=== PATIENT | female | born 2005 | race Hispanic/Latino ===

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

== ENCOUNTER 2025-04-12 22:46 | Emergency (ER) | payer OTHER, MEDICAID ==
[~2025-04-12] VITALS: Ht 157.5 cm; Wt 86.2 kg
--- NOTE | 2025-04-12 22:57 | ERN ---
ED Note History of Present Illness Stated Complaint: C/O N X V, HEADACHE X 2 DAYS; 10 WKS Chief Complaint: OB<20 weeks gest. Time Seen by MD: 22:49 Dictation: PATIENT IS A 20-YEAR-OLD FEMALE WHO IS APPROXIMATELY 10 WEEKS COMPLAINING OF NAUSEA VOMITING UNABLE TO KEEP ANY FOOD OR FLUIDS DOWN FOR THE LAST TWO DAYS. , SHE STATES SHE SEES A PRESCHOOL ASSISTANT DIRECTOR WHO CALLED HER IN SOME MEDICATIONS FOR VOMITING HOWEVER �SHE DID NOT TAKE HIM TODAY�. NO NO CONTRACTIONS Allergies: Coded Allergies: No Known Allergies (Unverified Allergy, Unknown, 05/03/22) Home Meds Active Scripts Diclofenac Sodium (Diclofenac Sodium) 50 Mg Tablet.dr, 50 MG PO TIDP PRN for SEVERE PAIN (7-10), #20 TAB 0 Refills Prov:YADI ISAACS MD 07/18/22 Ibuprofen (Ibuprofen) 600 Mg Tablet, 600 MG PO Q6H PRN for PAIN, #30 TAB 0 Refills Prov:CARINE ESTEVEZ MD 05/04/22 Past Medical History Past Medical History: No Pertinent History Surgical History: None Social History: Other LMP: Jan 18, 2025 : 1 Para: 0 Aborts: 0 RN Note Reviewed/Agreed w/PFSH: Yes Review of System Dictation CONSTITUTIONAL: NEGATIVE EXCEPT FOR HPI HEAD/FACE: NEGATIVE EXCEPT FOR HPI EENT: NEGATIVE EXCEPT FOR HPI RESPIRATORY: NEGATIVE EXCEPT FOR HPI GASTROINTESTINAL/ABDOMINAL: NEGATIVE EXCEPT FOR HPI NAUSEA VOMITING GENITOURINARY: NEGATIVE EXCEPT FOR HPI MUSCULOSKELETAL: NEGATIVE EXCEPT FOR HPI INTEGUMENTARY: NEGATIVE EXCEPT FOR HPI NEUROLOGICAL/PSYCH: NEGATIVE EXCEPT FOR HPI HEMATOLOGIC/LYMPHATIC: NEGATIVE EXCEPT FOR HPI ALL SYSTEMS NEGATIVE, EXCEPT NOTED ABOVE. 13 POINT REVIEW OF SYSTEMS ASSESSED AND ALL NEGATIVE EXCEPT FOR ABOVE. Initial Vital Sign VS Vital Signs Date Time Temp Pulse Resp B/P (MAP) Pulse Ox O2 Delivery O2 Flow Rate FiO2 04/12/25 22:48 97.9 82 20 117/70 99 Room Air 04/12/25 23:35 0 21 Physical Exam Dictation VITAL SIGNS REVIEWED GENERAL APPEARANCE: ALERT, ORIENTED X 3, NO ACUTE DISTRESS, WELL DEVELOPED, NOURISHED. HEAD AND FACE: NON-TRAUMATIC. EYES: PERRL, PINK CONJUNCTIVAS, EYELID NO TRAUMA, ANTERIOR CHAMBER WITH ARCUS SENILIS. EARS: PINNAS INTACT AND NO SIGNS OF TRAUMA OR ERYTHEMA EAR CANALS CLEAR AND NO DISCHARGE TM NO ERYTHEMA NOSE: NO DISCHARGE, NO BLEEDING. OROPHARYNX: MOUTH NORMAL, TONGUE PINK, PHARYNX CLEAR,NO ERYTHEMA, TONSILS NO EXUDATES, NO ABSCESSES NOTED, MUCOUS MEMBRANE MOIST NECK: SUPPLE, NON-TENDER, NO THYROMEGALY, NO MASSES, NO JVD, NO BRUITS BREAST:DEFERRED CHEST:NO TENDERNESS, NO CREPITUS, NO PARADOXICAL MOVEMENT, NO RETRACTIONS LUNGS:CLEAR, WELL-VENTILATED, SYMMETRIC, NO RALES, NO WHEEZING, NO RHONCHI, NO STRIDOR, GOOD BREATH SOUNDS BILATERALLY HEART: REGULAR RATE, REGULAR RHYTHM, NO MURMUR, NO GALLOPS VASCULAR: NO PERIPHERAL EDEMA, ABDOMEN: SOFT, POSITIVE BOWEL SOUNDS, NONDISTENDED, NO GUARDING, NONTENDER, NO REBOUND, NO MASSES NO HEPATOMEGALY, NO SPLENOMEGALY, NO SCHMITT'S SIGN, NO HERNIAS. RECTAL: DEFERRED GENITAL: DEFERRED NEUROLOGICAL: NORMAL SPEECH, MOTOR FUNCTION INTACT, SENSORY FUNCTION INTACT MUSCULOSKELETAL: NECK NONTENDER, FULL RANGE OF MOTION, BACK NONTENDER, FULL RANGE OF MOTION, EXTREMITIES: NONTENDER, FULL RANGE OF MOTION SKIN: COLOR PINK, DRY, NO TURGOR, NO RASH, NO LACERATIONS, NO ABRASIONS, NO CONTUSIONS. LYMPHATIC: DEFERRED Results (Laboratory/Radiology) Laboratory/Radiology Laboratory Tests Test 04/12/25 23:10 White Blood Count 11.3 K/uL (4.8-10.8) H Red Blood Count 3.83 MIL/uL (4.00-5.50) L Hemoglobin 12.4 g/dL (12.0-16.0) Hematocrit 34.9 % (36-48) L Mean Corpuscular Volume 91.1 fL (80-100) Mean Corpuscular Hemoglobin 32.4 pg (27.0-33.0) Mean Corpuscular Hemoglobin Concent 35.5 g/dL (32.0-36.0) Red Cell Distribution Width 11.8 % (11.0-15.5) Platelet Count 211 K/uL (130-400) Mean Platelet Volume 11.4 fL (7.5-10.5) H Immature Granulocyte % (Auto) 0.4 % (0-1) Neutrophils (%) (Auto) 73.5 % (40.0-77.0) Lymphocytes (%) (Auto) 20.1 % (21.0-51.0) L Monocytes (%) (Auto) 5.3 % (3.0-13.0) Eosinophils (%) (Auto) 0.3 % (0.0-8.0) Basophils (%) (Auto) 0.4 % (0.0-5.0) Neutrophils # (Auto) 8.3 K/uL (1.8-7.7) H Lymphocytes # (Auto) 2.3 K/uL (1.0-4.8) Monocytes # (Auto) 0.6 K/uL (0.1-1.0) Eosinophils # (Auto) 0.03 K/uL (0.00-0.70) Basophils # (Auto) 0.04 K/uL (0.00-0.20) Absolute Immature Granulocyte (auto 0.04 K/uL (0-1) Nucleated Red Blood Cells 0.0 % (0.0-0.19) Sodium Level 136 mmol/L (136-145) Potassium Level 3.5 mmol/L (3.5-5.1) Chloride Level 103 mmol/L (101-111) Carbon Dioxide Level 24 mmol/L (21-32) Blood Urea Nitrogen 6 mg/dL (7-18) L Creatinine 0.4 mg/dL (0.5-1.0) L Glomerular Filtration Rate Calc 144 mL/min (>90) Random Glucose 124 mg/dL (70-105) H Total Calcium 8.9 mg/dL (8.5-10.1) Human Chorionic Gonadotropin, Quant 47113 mIU/mL (0-5) H Labs Reviewed?: Yes ED Course ED Course Orders Procedure Category Date Status Time 0.9%Nacl 1000ml (Ns PHA 04/12/25 Complete 1000ml) 23:00 Cbc With Differential LAB 04/12/25 Complete 22:52 Hcg,Quantitative LAB 04/12/25 Complete 22:52 Ondansetron 4mg Inj PHA 04/12/25 Complete (Zofran 4mg Inj) 23:00 Type And Screen BBK 04/12/25 Complete 22:52 Basic Metabolic Panel LAB 04/12/25 Complete 22:52 *Nursing CPOE 04/12/25 Transmitted Communication: 23:02 Current Medications Medications (Trade) Dose Ordered Sig/Merlin Route PRN Reason Start Time Stop Time Status Last Admin Dose Admin Ondansetron HCl (zoFRAN 4MG INJ) 4 mg ONCE ONCE IVP 04/12/25 23:00 04/12/25 23:01 DC 04/12/25 23:02 Sodium Chloride 1,000 ml @ 0 mls/hr ONCE ONCE IV 04/12/25 23:00 04/12/25 23:01 DC 04/12/25 23:02 Vital Signs Date Time Temp Pulse Resp B/P (MAP) Pulse Ox O2 Delivery O2 Flow Rate FiO2 04/12/25 23:35 98.4 85 18 125/63 98 Room Air* 0 21 04/12/25 22:48 97.9 82 20 117/70 99 Room Air PATIENT DISCHARGED HOME WITH HYPEREMESIS GRAVIDARUM IN . TOLD NO WORK UNTIL CLEARED BY HER MID-LEVEL PROVIDER TOMORROW Medical Decision Making [facility] 0015 MEDICAL DISCHARGE MAKING BASED ON BASIC LABS FOR AND HEART TONES CHECK. UNABLE TIME HEART TONES HOWEVER HIT THEM SEVERAL TIMES AND WE WERE ATTEMPTING TO AUSCULTATE. PATIENT DISCHARGED HOME NO NAUSEA VOMITING NOW. SHE WILL FOLLOW UP WITH HER EXECUTIVE ASSISTANT TO GENERAL COUNSEL DOCTOR TOMORROW. DX & DISP Disposition: Discharge Departure Impression: Primary Impression: Hyperemesis gravidarum Additional Impression: Dehydration Condition: Stable Additional Instructions: FOLLOW-UP WITH PRIMARY CARE PROVIDER IN 1 TO 2 DAYS. TAKE MEDICATIONS DIRECTED HERE IN THE EMERGENCY ROOM. OKAY TO CONTINUE HOME MEDICATIONS UNLESS OTHERWISE DISCUSSED DURING YOUR VISIT IN THE EMERGENCY ROOM TODAY. RETURN TO YOUR NEAREST EMERGENCY ROOM IF SYMPTOMS WORSEN OR IF THERE IS NO IMPROVEMENT. CALL 911 IF YOU NEED IMMEDIATE ASSISTANCE. TAKE TYLENOL OR MOTRIN [id number] NEEDED AND IF NO CONTRAINDICATIONS ARE PRESENT. INCREASE ORAL HYDRATION. A WOUND CULTURE OR URINE CULTURE WAS ORDERED HERE IN THE EMERGENCY ROOM DEPARTMENT PLEASE FOLLOW-UP WITH PRIMARY CARE PROVIDER AND ADVISE THEM TO GET REPEAT PORTS FROM OUR FACILITY. IF YOU HAD ANY EDUARDO WRAP/SPLINTS THAT WERE APPLIED HERE, PLEASE DO NOT REMOVE THEM UNTIL YOU SEE YOUR PRIMARY CARE OR SPECIALTY. NO WORK UNTIL CLEARED BY YOUR EXECUTIVE ASSISTANT TO GENERAL COUNSEL PROVIDER TOMORROW. CONTINUE ALL MEDICATIONS FROM YOUR EXECUTIVE ASSISTANT TO GENERAL COUNSEL PRESCHOOL ASSISTANT DIRECTOR. Referrals: NONE (PCP) Time of Disposition: 00:21 I have reviewed the case, and I agree with, Diagnosis and Plan [id number] WEBB NP April 12, 2025 22:57
[2025-04-12] MEDS: ondanSETRON 4MG INJ IVP ONE (23:02)
[2025-04-12] MEDS: 0.9%NACL 1000ML 1,000 ML IV ONE (23:02)
[2025-04-12 23:16] LABS: BASOPHILS # (AUTO) 0.04 K/uL (0.00-0.20); BASOPHILS % (AUTO) 0.4 % (0.0-5.0); EOSINOPHILS # (AUTO) 0.03 K/uL (0.00-0.70); EOSINOPHILS % (AUTO) 0.3 % (0.0-8.0); HEMATOCRIT 34.9 % (36-48); IMMATURE GRANULOCYTE ABSOLUTE 0.04 K/uL (0-1); LYMPHOCYTES # (AUTO) 2.3 K/uL (1.0-4.8); LYMPHOCYTES % (AUTO) 20.1 % (21.0-51.0); MEAN CORPUSCULAR HEMOGLOBIN 32.4 pg (27.0-33.0); MEAN CORPUSCULAR HGB CONC 35.5 g/dL (32.0-36.0); MEAN CORPUSCULAR VOLUME 91.1 fL (80-100); MONOCYTES # (AUTO) 0.6 K/uL (0.1-1.0); MONOCYTES % (AUTO) 5.3 % (3.0-13.0); NEUTROPHILS # (AUTO) 8.3 K/uL (1.8-7.7); NEUTROPHILS % (AUTO) 73.5 % (40.0-77.0); PLATELET COUNT (AUTO) 211 K/uL (130-400); RED BLOOD CELL COUNT(AUTO) 3.83 MIL/uL (4.00-5.50); RED CELL DISTRIBUTION WIDTH 11.8 % (11.0-15.5); WHITE BLOOD COUNT (AUTO) 11.3 K/uL (4.8-10.8)
[2025-04-12 23:32] LABS: CREATININE 0.4 mg/dL (0.5-1.0); POTASSIUM 3.5 mmol/L (3.5-5.1)
[2025-04-13 00:39] VITALS: BP 117/65; PULSE 82; RESP 20; TEMP 98.4; O2SAT 99
== END 2025-04-13 00:50 | disposition home or self-care (01) ==
LOC: EDH 22:46
DX: O21.0 Mild hyperemesis gravidarum (principal); O99.281 Endocrine, nutritional and metabolic diseases complicating pregnancy, first trimester; E86.0 Dehydration; O26.891 Other specified pregnancy related conditions, first trimester; R10.2 Pelvic and perineal pain; Z3A.10 10 weeks gestation of pregnancy
CPT/HCPCS: 99283; 96374; 96361; 80048; 84702; 85025; 86850; 86900; 86901; 36415; J7030; J2405